=== PATIENT | female | born 1985 | race African-American/Black ===

== ENCOUNTER 2021-11-28 09:03 | Emergency (ER) | payer SELFPAY ==
[2021-11-28] MEDS ORDERED: cefTRIAXone\\ROCEPHIN 1 GM VIAL ONE (10:25)
[2021-11-28] MEDS ORDERED: Lidocaine 1% (PF) 30 ML VIAL ONE (10:26)
[2021-11-28 22:52] LABS: Chlamydia by PCR Not Detected (NotDetected); GC by PCR Not Detected (NotDetected)
== END 2021-11-28 10:33 | disposition home or self-care (01) ==
LOC: ERS 09:03
DX: A60.03 Herpesviral cervicitis (principal); E11.9 Type 2 diabetes mellitus without complications; Z79.84 Long term (current) use of oral hypoglycemic drugs
CPT/HCPCS: 87480; 87491; 87510; 87591; 87660; 96372; 99283; J0696; J2001

== ENCOUNTER 2022-10-07 12:09 | Emergency (ER) | payer SELFPAY | END 2022-10-07 13:36 | disposition home or self-care (01) | LOC: ERS 12:09 | DX: A60.9 Anogenital herpesviral infection, unspecified (principal); B37.31 Acute candidiasis of vulva and vagina; E11.9 Type 2 diabetes mellitus without complications; Z79.84 Long term (current) use of oral hypoglycemic drugs | CPT/HCPCS: 99283 ==